=== PATIENT | female | born 1990 ===

== ENCOUNTER 2020-11-09 18:32 | Inpatient (IN) ==
[~2020-11-09 18:32] MED LIST: *HR* Nalbuphine 10 MG/ML AMPUL IV PRN; Famotidine 20 MG/2 ML VIAL IVP PRN; Lidocaine 1% 20 ML MDV INFILT PRN; Metoclopramide 10 MG/2 ML VIAL IVP PRN; Naloxone 0.4 MG/ML INJ IVP PRN; Ondansetron 4 MG/2 ML VIAL IVP PRN; Oxytocin 20 units/ LR 1000 mL 20 UNIT/1,000 ML BAG IVC SCH
[2020-11-09] MEDS ORDERED: EPHEDrine 50 MG/ML VIAL IVP PRN (19:42)
[2020-11-09] MEDS ORDERED: Epidural Premix (fent/bupiv) 110 ML EP SCH (19:45)
[2020-11-09 19:46] LABS: Basophils # 0.1 K/mcL (0.0-0.2); Basophils % 0.3 %; Hematocrit 38.8 % (35.3-44.9); Hemoglobin 12.9 g/dL (11.5-15.4); Immature Granulocytes % 0.6 % (0-4); Lymphocytes # 2.4 K/mcL (0.6-4.6); Mean Corpuscular HGB Conc 33.2 g/dL (31.6-35.5); Mean Corpuscular Hemoglobin 29.4 pg (28.0-33.3); Mean Corpuscular Volume 88.4 fL (83.0-100.0); Monocytes % 5.5 %; Neutrophils # 13.9 K/mcL (1.6-8.9); Platelet Count 193 K/mcL (140-400); Red Blood Count 4.39 M/mcL (3.82-4.97); Red Cell Distribution Width 13.2 % (11.5-14.5); Segmented Neutrophils % 79.6 %; White Blood Count 17.4 K/mcL (4.3-11.1)
[2020-11-09] MEDS ORDERED: Ringers Solution, Lactated 1,000 ML ONE ×2 (19:52→23:14)
[2020-11-09 20:18] LABS: Influenza A PCR Negative (Negative); Influenza B PCR Negative (Negative); Resp. Syncytial Virus PCR Negative (Negative)
[2020-11-09 20:20] LABS: SARS-CoV-2 by PCR (In House) Negative (Negative)
[2020-11-09] MEDS ORDERED: Ropivacaine/PF 0.2% 20 ML VIAL ONE (22:47)
[2020-11-09] MEDS ORDERED: *HR* FentaNYL (PF) 100 MCG/2 ML VIAL ONE (22:47)
[2020-11-10] MEDS ORDERED: Ampicillin 2,000 MG in 0.9 % Sodium Chloride Mini Bag 100 ML IVPB ONE (03:40)
[2020-11-10] MEDS ORDERED: Gentamicin 140 MG in 0.9 % Sodium Chloride 100 ML IVPB ONE (04:00)
[2020-11-10] MEDS ORDERED: SODIUM CHLORIDE 0.9% IVPB ONE ×3 (04:00→04:15)
[2020-11-10] MEDS ORDERED: GENTAMICIN IVPB ONE ×3 (04:00→04:15)
[2020-11-10] MEDS ORDERED: Gentamicin 180 MG in 0.9 % Sodium Chloride 100 ML IVPB ONE (04:00)
[2020-11-10] MEDS ORDERED: Ringers Solution, Lactated 1,000 ML ONE (04:50)
[2020-11-10] MEDS ORDERED: Clindamycin 900 MG/50 ML 900 MG/50 ML IV.SOLN IVPB SCH (08:00)
[2020-11-10] MEDS ORDERED: Acetaminophen 325 MG TABLET PO PRN (09:00)
[2020-11-10] MEDS ORDERED: Lanolin 7 G OINT...G. TP PRN (09:00)
[2020-11-10] MEDS ORDERED: Oxytocin 20 units/ LR 1000 mL 20 UNIT/1,000 ML BAG IVC ONE (09:00)
[2020-11-10] MEDS ORDERED: Benzocaine/Menthol 56 GM AEROSOL SPRAY TP PRN (09:00)
[2020-11-10] MEDS ORDERED: Oxytocin 20 units/ LR 1000 mL 20 UNIT/1,000 ML BAG IVC SCH (09:00)
[2020-11-10] MEDS: Prenatal Vit/FA 1 EACH TABLET PO SCH (09:14)
[2020-11-10] MEDS: Ibuprofen 600 MG TABLET PO PRN ×2 (09:14→18:39)
[2020-11-11 08:19] VITALS: BP 114/75; PULSE 80; TEMP 98.3; O2SAT 99
[2020-11-11] MEDS: Ibuprofen 600 MG TABLET PO PRN (09:26)
[2020-11-11] MEDS: Prenatal Vit/FA 1 EACH TABLET PO SCH (09:26)
== END 2020-11-11 15:07 | disposition home or self-care (01) | DRG 807 ==
LOC: 1NENULAB → 1NENUOBS 11-10 08:54
PROVIDERS: ADMIT Advanced Practice Midwife; ATTEND Advanced Practice Midwife